=== PATIENT | male | born 1945 | race Caucasian/White ===

== ENCOUNTER 2017-02-03 13:31 | Emergency (ER) | payer MEDICARE, BC ==
[~2017-02-03] VITALS: Ht 177.8 cm; Wt 103.4 kg
[2017-02-03 13:32] VITALS: BP 157/79
[2017-02-03] MEDS ORDERED: PREG100C PO (14:16)
[2017-02-03] MEDS ORDERED: DORZ10DR21 EACHEYE (14:16)
[2017-02-03] MEDS ORDERED: PARO20TA4 PO (14:16)
[2017-02-03] MEDS ORDERED: LISI-167 PO (14:18)
[2017-02-03] MEDS ORDERED: OMEP20TA62 PO (14:18)
== END 2017-02-03 14:50 | disposition home or self-care (01) ==
LOC: ED 14:30
DX: G51.0 Bell's palsy (principal); I10 Essential (primary) hypertension; Z87.891 Personal history of nicotine dependence
CPT/HCPCS: 99283; J7512